=== PATIENT | male | born 1980 | race Two or more races ===

== ENCOUNTER 2024-02-05 18:13 | Emergency (ER) | payer MEDICAID, SELFPAY ==
[2024-02-05 18:14] VITALS: BMI 30.1
[2024-02-05 18:16] VITALS: BP 182/88; PULSE 87; RESP 17; TEMP 36.8; O2SAT 100
--- NOTE | 2024-02-05 18:21 | EKG_ITS ---
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
--- NOTE | 2024-02-05 18:28 | XR_ITS ---
Examination: PA lateral chest 2 views Technique: Upright PA lateral chest 2 views Exam date and time: February 05, 2024 1842 hrs. Comparison May 01, 2023 Indications: Chest pain today Findings: Normal heart size Lungs are clear The osseous structures are intact Impression: No active disease
--- NOTE | 2024-02-05 18:29 | PD.EDRME ---
Rapid Medical Screening Exam RME Arrival date/time: 02/05/24 18:13 44-year-old male with past medical history of diabetes and previous [place] presents emergency department complaining of chest pain with palpitation that started approximately 2 hours ago. Chief Complaint: Arrhythmia/Palpitations Time Seen by Provider: 02/05/24 18:26 Vital signs: Vital Signs Temperature 98.2 F 02/05/24 18:16 Pulse Rate 87 02/05/24 18:16 Respiratory Rate 17 02/05/24 18:16 Blood Pressure 182/88 H 02/05/24 18:16 Pulse Oximetry (%) 100 02/05/24 18:16 Oxygen Delivery Method Room Air 02/05/24 18:16 Vital signs reviewed by provider: Yes
[2024-02-05 19:57] LABS: Basophils # (Auto) 0.1 Thou/mm3 (0.0-0.2); Basophils % (Auto) 1 % (0-2.5); Eosinophils # (Auto) 0.2 Thou/mm3 (0.0-0.5); Eosinophils % (Auto) 3 % (0-10); Hematocrit 40.8 % (41.0-53.0); Hemoglobin 14.6 g/dL (13.5-16.0); Immature Granulocytes % (Auto) 0 % (0-0); Immature Granulocytes Auto 0.01 Thou/mm3 (0.00-0.00); Lymphocytes # (Auto) 2.4 Thou/mm3 (1.0-4.8); Lymphocytes % (Auto) 38 % (10-50); Mean Corpuscular HGB Conc 35.8 g/dl (31.0-37.0); Mean Corpuscular Hemoglobin 33.6 pg (25.0-35.0); Mean Corpuscular Volume 94 fL (80-100); Monocytes # (Auto) 0.7 Thou/mm3 (0.0-0.8); Monocytes % (Auto) 11 % (0-12); Neutrophils # (Auto) 2.9 Thou/mm3 (1.8-7.7); Neutrophils % (Auto) 46 % (37-80); Nucleated Red Blood Cell % 0 /100 WBC (0); Platelet Count 200 Thou/mm3 (140-440); RDW Standard Deviation 41.9 fL (35.1-43.9); Red Blood Count 4.35 Miln/mm3 (4.50-5.90); White Blood Count 6.3 Thou/mm3 (3.8-10.6)
[2024-02-05 20:15] LABS: B-Type Natriuretic Peptide < 20 pg/mL (0-100); INR 0.9 (0.9-1.3); Partial Thromboplastin Time 26.6 Seconds (22.0-36.0); Prothrombin Time 10.4 Seconds (9.0-12.2)
[2024-02-05 20:16] LABS: Alanine Aminotransferase 30 U/L (10-49); Albumin/Globulin Ratio 1.5 (1.2-2.2); Alkaline Phosphatase 98 U/L (46-116); Anion Gap 6 (7-16); Aspartate Amino Transferase 21 U/L (0-34); BUN/Creatinine Ratio 19 Ratio (12-20); Bilirubin,Total 0.6 mg/dL (0.3-1.2); Blood Urea Nitrogen 19 mg/dL (9-23); Calcium 9.8 mg/dL (8.3-10.6); Calcium (Corrected) 9.8 mg/dL (8.5-10.1); Carbon Dioxide 27.6 mMol/L (20.0-31.0); Chloride 107 mMol/L (98-107); Estimated Creatinine Clearance 84.8 mL/min (>60); Globulin 3.3 gm/dL (2.3-3.5); Glucose 118 mg/dL (74-106); LDH (Lactate Dehydrogenase) 185 U/L (120-246); Magnesium 2.1 mg/dL (1.6-2.6); Osmolality,Calculated 284 (275-295); Potassium 4.3 mMol/L (3.4-5.1); Sodium 141 mMol/L (136-145); Total Protein 8.3 gm/dL (5.7-8.2); Troponin I < 0.020 ng/mL (0.0-0.045); eGFR > 60 See Note
[2024-02-05 20:17] LABS: Collection Type, Urine Clean Catch; Squamous Epithelial Cell,Urine 0 /hpf (0-5)
[2024-02-05 20:28] LABS: Bilirubin,Urine Negative (Negative); Blood,Urine Negative (Negative); Clarity,Urine Clear (Clear/Hazy); Color,Urine Colorless (Lt Yel-Yel); Culture Indicated,Urine Not Indicated; Glucose, Urine 4+ (Negative); Ketones,Urine Negative (Negative); Leukocyte Esterase,Urine Negative (Negative); Nitrite,Urine Negative (Negative); Protein,Urine Trace (Neg - Trace); RBC,Urine 1 /hpf (0-3); Specific Gravity,Urine 1.014 (1.001-1.035); Urobilinogen,Urine Negative mg/dL (0.0-1.0); WBC,Urine < 1 /hpf (0-5)
[2024-02-05 20:30] LABS: Amphetamine/Methamp Scrn,U Negative (Negative); Barbiturate Screen,Urine Negative (Negative); Benzodiazepines Screen,Urine Negative (Negative); Benzoylecgonine Screen, Ur Negative (Negative); Fentanyl Screen,Urine Negative (Negative); Opiate Screen,Urine Negative (Negative); THC Screen,Urine Negative (Negative)
[2024-02-05 23:52] LABS: Troponin I < 0.020 ng/mL (0.0-0.045)
[2024-02-05 23:55] VITALS: BP 155/95; PULSE 76; RESP 18; TEMP 36.8; O2SAT 98
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
[2024-02-06 02:10] VITALS: BP 126/82; PULSE 68; RESP 18; TEMP 37.2; O2SAT 100
== END 2024-02-06 02:10 | disposition home or self-care (01) ==
PROVIDERS: Emergency Provider Emergency Medicine; PCP Family Medicine
DX: R07.89 Other chest pain (principal); R00.2 Palpitations; I10 Essential (primary) hypertension; I25.2 Old myocardial infarction
CPT/HCPCS: 36415; 71046; 80053; 80307; 81001; 83615; 83735; 83880; 84484; 85025; 85610; 85730; 93005; 99283